=== PATIENT | male | born 1985 | race Caucasian/White ===

== ENCOUNTER 2016-10-28 02:20 | Emergency (ER) | payer OTHER ==
[~2016-10-28] VITALS: Ht 172.7 cm; Wt 76.0 kg
[~2016-10-28 02:20] MED LIST: CITALOPRAM20 MG PO; MIRTAZAPINE PO
[2016-10-28] MEDS ORDERED: DEPAKOTE ER250 MG PO (02:32)
[2016-10-28] MEDS ORDERED: SEROTONIN PO (02:32)
[2016-10-28] MEDS ORDERED: AMOXICILLIN500 MG PO (04:06)
[2016-10-28 04:15] VITALS: BP 148/76
== END 2016-10-28 04:14 | disposition home or self-care (01) | DRG 605 ==
LOC: ED 02:20
PROC: 0HQ1XZZ Repair Face Skin, External Approach (ICD-10-PCS; principal; 2016-10-28)
DX: S01.81XA Laceration without foreign body of other part of head, initial encounter (principal); F17.210 Nicotine dependence, cigarettes, uncomplicated; S16.1XXA Strain of muscle, fascia and tendon at neck level, initial encounter; V57.0XXA Driver of pick-up truck or van injured in collision with fixed or stationary object in nontraffic accident, initial encounter

== ENCOUNTER 2021-07-05 16:56 | Emergency (ER) | payer OTHER ==
[~2021-07-05] VITALS: Ht 172.7 cm; Wt 68.0 kg
[~2021-07-05 16:56] MED LIST changes: +AMOXICILLIN500 MG PO; +DEPAKOTE ER250 MG PO; +SEROTONIN PO
[2021-07-05 17:38] LABS: IMMATURE GRANULOCYTES 1.5 % (0.0-5.0); MEAN CORPUSCULAR HGB 32.4 pG CALC (26.0-32.0); MEAN CORPUSCULAR HGB CONC 33.7 g/dL CAL (32.0-36.0); PLATELET COUNT 468 thou/uL (130-400); RED BLOOD COUNT 5.81 mill/uL (4.70-6.10); RED CELL DISTRI WIDTH 13.3 % (11.5-15.5)
[2021-07-05 17:42] LABS: URINE BILIRUBIN - DIPSTICK NEGATIVE (NEGATIVE); URINE BLOOD DIPSTICK LARGE (NEGATIVE); URINE COLOR YELLOW; URINE GLUCOSE - DIPSTICK NEGATIVE (NEGATIVE); URINE KETONE NEGATIVE (NEGATIVE); URINE LEUK ESTERASE NEGATIVE (NEGATIVE); URINE PROTEIN - DIPSTICK 100 mg/dL (NEG-TRACE); URINE SPECIFIC GRAVITY >=1.030; URINE UROBILINOGEN - DIPSTICK 0.2 E.U./dL (0.2)
[2021-07-05 17:44] LABS: HEMATOCRIT 55.8 % (39.0-50.0); HEMOGLOBIN 18.8 g/dl (14.0-18.0)
[2021-07-05 17:45] LABS: MANUAL DIFFERENTIAL YES
[2021-07-05 17:46] LABS: URINE NITRITE - DIPSTICK POSITIVE (Negative)
[2021-07-05 17:50] LABS: ACT PARTIAL THROMBO TIME 26.4 SECONDS (20.0-32.5); CHLORIDE 103 mmol/l (95-108); ETHYL ALCOHOL 0 mg/dl (0-30); INTERNATIONAL NORMALIZED RATIO 1.3 RATIO (0.7-1.3); LIPASE 157 u/l (23-300); PROTHROMBIN TIME 13.3 SECONDS (9.0-12.5); SODIUM 141 mmol/l (137-146)
[2021-07-05 17:52] LABS: BAND 17 % (0-8)
[2021-07-05 17:56] LABS: URINE BACTERIA RARE hpf; URINE TRANSITIONAL EPI. CELLS FEW hpf
[2021-07-05 17:57] LABS: URINE SPERM MODERATE hpf (NONE-RARE)
[2021-07-05 18:56] VITALS: BP 130/116
[2021-07-05 19:06] LABS: BUN 35 mg/dL (9-20)
[2021-07-05 19:07] LABS: ALBUMIN 5.1 g/dL (3.2-5.0); ALKALINE PHOSPHATASE 101 u/l (38-126); ANION GAP 34 (6-22 (CALC)); BUN/CREATININE RATIO 7 (12-20 (CALC)); CARBON DIOXIDE 12 mmol/l (22-30); GFR 13 ML/MIN (>=60 (CALC)); GFR FOR AFR.AMER. 16 ML/MIN (>=60 (CALC)); TOTAL PROTEIN 8.9 g/dL (6.3-8.2)
[2021-07-05 19:08] LABS: CREATININE 5.1 mg/dL (0.7-1.3); POTASSIUM 7.7 mmol/l (3.5-5.1); SGOT/AST 2031 u/l (17-59)
[2021-07-05 19:58] LABS: CPK > 1600 u/l (52-200)
== END 2021-07-05 18:57 | DRG 999 ==
LOC: ED 16:56
PROC: 0BH17EZ Insertion of Endotracheal Airway into Trachea, Via Natural or Artificial Opening (ICD-10-PCS; principal; 2021-07-05)
PROC: 5A1935Z Respiratory Ventilation, Less than 24 Consecutive Hours (ICD-10-PCS; 2021-07-05)
PROC: 0T9B70Z Drainage of Bladder with Drainage Device, Via Natural or Artificial Opening (ICD-10-PCS; 2021-07-05)
DX: T59.811A Toxic effect of smoke, accidental (unintentional), initial encounter (principal); T31.10 Burns involving 10-19% of body surface with 0% to 9% third degree burns; R41.82 Altered mental status, unspecified; J70.5 Respiratory conditions due to smoke inhalation; Y92.008 Other place in unspecified non-institutional (private) residence as the place of occurrence of the external cause; T20.26XA Burn of second degree of forehead and cheek, initial encounter; T22.231A Burn of second degree of right upper arm, initial encounter; T21.21XA Burn of second degree of chest wall, initial encounter; T21.22XA Burn of second degree of abdominal wall, initial encounter; T24.211A Burn of second degree of right thigh, initial encounter; T24.201A Burn of second degree of unspecified site of right lower limb, except ankle and foot, initial encounter; F17.210 Nicotine dependence, cigarettes, uncomplicated

== ENCOUNTER 2021-10-19 19:49 | Emergency (ER) | payer OTHER ==
[~2021-10-19] VITALS: Ht 172.7 cm; Wt 63.0 kg
[2021-10-19] VITALS (10 sets, daily range): BP systolic 103–119; BP diastolic 69–80
[2021-10-19 20:26] LABS: IMMATURE GRANULOCYTES 2.8 % (0.0-5.0); MEAN CORPUSCULAR HGB CONC 33.1 g/dL CAL (32.0-36.0); NEUT# 14.7 thou/uL (1.82-7.42); RED BLOOD COUNT 4.58 mill/uL (4.70-6.10); RED CELL DISTRI WIDTH 14.5 % (11.5-15.5)
[2021-10-19 20:35] LABS: HEMATOCRIT 40.2 % (39.0-50.0); HEMOGLOBIN 13.3 g/dl (14.0-18.0); MEAN CELL VOLUME 87.8 fL CALC (80.0-100.0)
[2021-10-19 20:44] LABS: ALBUMIN 4.5 g/dL (3.2-5.0); ALKALINE PHOSPHATASE 114 u/l (38-126); AMYLASE 61 u/l (30-110); BUN 18 mg/dL (9-20); CARBON DIOXIDE 13 mmol/l (22-30); CHLORIDE 104 mmol/l (95-108); LIPASE 54 u/l (23-300); SODIUM 138 mmol/l (137-146); TOTAL PROTEIN 7.8 g/dL (6.3-8.2)
[2021-10-19 20:53] LABS: ANION GAP 26 (6-22 (CALC)); BILIRUBIN, TOTAL 0.3 mg/dL (0.0-1.4); BUN/CREATININE RATIO 14 (12-20 (CALC)); CREATININE 1.3 mg/dL (0.7-1.3); GFR FOR AFR.AMER. > 60 ML/MIN (>=60 (CALC)); GFR OTHER RACES > 60 ML/MIN (>=60 (CALC)); POTASSIUM 4.6 mmol/l (3.5-5.1); SGOT/AST 46 u/l (17-59)
[2021-10-19 20:56] LABS: MYOGLOBIN 92 ng/mL (0 - 121)
[2021-10-19 22:40] LABS: PROTHROMBIN TIME 10.6 SECONDS (9.0-12.5)
[2021-10-19 22:41] LABS: CPK 187 u/l (52-200); ETHYL ALCOHOL 0 mg/dl (0-30)
[2021-10-20] VITALS (10 sets, daily range): BP systolic 109–130; BP diastolic 72–108
[2021-10-20] MEDS ORDERED: BUSPAR5 MG PO (02:29)
[2021-10-20] MEDS ORDERED: HTN MED (02:30)
[2021-10-20] MEDS ORDERED: MIRTAZAPINE15 MG PO (02:30)
== END 2021-10-20 02:40 | disposition short-term general hospital (02) | DRG 918 ==
LOC: ED 19:49
PROVIDERS: Emergency Medicine
PROC: 05H533Z Insertion of Infusion Device into Right Subclavian Vein, Percutaneous Approach (ICD-10-PCS; principal; 2021-10-19)
DX: T40.2X1A Poisoning by other opioids, accidental (unintentional), initial encounter (principal); K92.0 Hematemesis; R41.0 Disorientation, unspecified; F17.200 Nicotine dependence, unspecified, uncomplicated; T54.2X1D Toxic effect of corrosive acids and acid-like substances, accidental (unintentional), subsequent encounter; T30.4 Corrosion of unspecified body region, unspecified degree; T79.9XXD Unspecified early complication of trauma, subsequent encounter; Z87.11 Personal history of peptic ulcer disease; Z20.822 Contact with and (suspected) exposure to COVID-19
CPT/HCPCS: Q9967; S0164

== ENCOUNTER 2022-03-21 20:02 | Emergency (ER) | payer OTHER ==
[~2022-03-21] VITALS: Ht 172.7 cm; Wt 68.0 kg
[~2022-03-21 20:02] MED LIST changes: +BUSPAR5 MG PO; +HTN MED; +MIRTAZAPINE15 MG PO
[2022-03-21 20:15] VITALS: BP 120/85
[2022-03-21 20:54] LABS: URINE BILIRUBIN - DIPSTICK NEGATIVE (NEGATIVE); URINE BLOOD DIPSTICK NEGATIVE (NEGATIVE); URINE COLOR YELLOW; URINE GLUCOSE - DIPSTICK NEGATIVE (NEGATIVE); URINE KETONE NEGATIVE (NEGATIVE); URINE LEUK ESTERASE NEGATIVE (NEGATIVE); URINE PROTEIN - DIPSTICK NEGATIVE (NEG-TRACE); URINE UROBILINOGEN - DIPSTICK 0.2 E.U./dL (0.2)
[2022-03-21 20:56] LABS: URINE NITRITE - DIPSTICK NEGATIVE (Negative)
[2022-03-21 21:00] LABS: BASO% 0.5 % (0-3); EOS% 1.9 % (0-8); HEMATOCRIT 42.6 % (39.0-50.0); HEMOGLOBIN 14.5 g/dl (14.0-18.0); IMMATURE GRANULOCYTES 1.3 % (0.0-5.0); LYMPH% 36.7 % (15-41); MEAN CELL VOLUME 87.5 fL CALC (80.0-100.0); MEAN CORPUSCULAR HGB 29.8 pG CALC (26.0-32.0); MONO% 6.3 % (2-13); NEUT# 5.66 thou/uL (1.82-7.42); NEUT% 53.3 % (42-76); RED BLOOD COUNT 4.87 mill/uL (4.70-6.10); RED CELL DISTRI WIDTH 13.8 % (11.5-15.5)
[2022-03-21 21:18] LABS: ALBUMIN 4.8 g/dL (3.2-5.0); ALKALINE PHOSPHATASE 134 u/l (38-126); BUN 9 mg/dL (9-20); BUN/CREATININE RATIO 10 (12-20 (CALC)); CHLORIDE 112 mmol/l (95-108); GFR FOR AFR.AMER. > 60 ML/MIN (>=60 (CALC)); GFR OTHER RACES > 60 ML/MIN (>=60 (CALC)); SGOT/AST 41 u/l (17-59); TOTAL PROTEIN 8.5 g/dL (6.3-8.2)
[2022-03-21 21:19] LABS: ANION GAP 18 (6-22 (CALC)); BILIRUBIN, TOTAL 0.1 mg/dL (0.0-1.4); CARBON DIOXIDE 23 mmol/l (22-30); POTASSIUM 3.3 mmol/l (3.5-5.1); SODIUM 150 mmol/l (137-146)
[2022-03-21 21:20] LABS: ETHYL ALCOHOL 288 mg/dl (0-30)
[2022-03-22 00:04] VITALS: BP 121/82
[2022-03-22] MEDS ORDERED: TRAMADOL HYDROC50 M1 PO (16:36)
[2022-03-22] MEDS ORDERED: CEPHALEXIN500 M1 PO (16:36)
[2022-03-25] MEDS ORDERED: CEPHALEXIN500 M1 PO (11:02)
[2022-03-25] MEDS ORDERED: TRAMADOL HYDROC50 M1 PO (11:02)
== END 2022-03-22 00:27 | DRG 159 ==
LOC: ED 20:02
PROVIDERS: Family Medicine
DX: S01.511A Laceration without foreign body of lip, initial encounter (principal); S71.011A Laceration without foreign body, right hip, initial encounter; S70.01XA Contusion of right hip, initial encounter; Y04.0XXA Assault by unarmed brawl or fight, initial encounter; F10.129 Alcohol abuse with intoxication, unspecified; F15.10 Other stimulant abuse, uncomplicated; Y90.8 Blood alcohol level of 240 mg/100 ml or more; F12.10 Cannabis abuse, uncomplicated

== ENCOUNTER 2022-03-22 15:32 | Emergency (ER) | payer OTHER ==
[~2022-03-22] VITALS: Ht 172.7 cm; Wt 65.7 kg
[2022-03-22 15:56] VITALS: BP 147/104
[2022-03-22 16:00] VITALS: BP 139/103
[2022-03-22 16:15] VITALS: BP 142/111
[2022-03-22 16:30] VITALS: BP 130/91
[2022-03-22] MEDS ORDERED: CEPHALEXIN500 M1 PO (16:36)
[2022-03-22] MEDS ORDERED: TRAMADOL HYDROC50 M1 PO (16:36)
[2022-03-22 16:45] VITALS: BP 130/91
[2022-03-25] MEDS ORDERED: CEPHALEXIN500 M1 PO (11:02)
[2022-03-25] MEDS ORDERED: TRAMADOL HYDROC50 M1 PO (11:02)
== END 2022-03-22 16:45 | disposition home or self-care (01) | DRG 921 ==
LOC: ED 15:32
DX: T81.33XA Disruption of traumatic injury wound repair, initial encounter (principal)

== ENCOUNTER 2022-04-24 12:55 | Emergency (ER) | payer OTHER ==
[~2022-04-24] VITALS: Ht 172.7 cm; Wt 70.0 kg
[2022-04-24] VITALS (39 sets, daily range): BP systolic 89–122; BP diastolic 55–81
[~2022-04-24 12:55] MED LIST changes: +CEPHALEXIN500 M1 PO; +TRAMADOL HYDROC50 M1 PO
[2022-04-24] MEDS ORDERED: LISINOPRIL5 MG PO (13:10)
[2022-04-24 13:26] LABS: BASO% 0.2 % (0-3); EOS% 0.9 % (0-8); HEMOGLOBIN 12.1 g/dl (14.0-18.0); IMMATURE GRANULOCYTES 0.9 % (0.0-5.0); LYMPH% 20.6 % (15-41); MEAN CELL VOLUME 88.6 fL CALC (80.0-100.0); MEAN CORPUSCULAR HGB 29.9 pG CALC (26.0-32.0); MEAN CORPUSCULAR HGB CONC 33.7 g/dL CAL (32.0-36.0); MONO% 13.2 % (2-13); NEUT# 13.47 thou/uL (1.82-7.42); NEUT% 64.2 % (42-76); RED BLOOD COUNT 4.05 mill/uL (4.70-6.10); RED CELL DISTRI WIDTH 13.6 % (11.5-15.5)
[2022-04-24 13:27] LABS: HEMATOCRIT 35.9 % (39.0-50.0)
[2022-04-24 13:31] LABS: ALBUMIN 4.3 g/dL (3.2-5.0); ALKALINE PHOSPHATASE 101 u/l (38-126); BUN 15 mg/dL (9-20); BUN/CREATININE RATIO 13 (12-20 (CALC)); CARBON DIOXIDE 23 mmol/l (22-30); CHLORIDE 107 mmol/l (95-108); CPK 85 u/l (55-170); CREATININE 1.1 mg/dL (0.7-1.3); ETHYL ALCOHOL 0 mg/dl (0-30); GFR FOR AFR.AMER. > 60 ML/MIN (>=60 (CALC)); GFR OTHER RACES > 60 ML/MIN (>=60 (CALC)); MAGNESIUM 1.8 mg/dL (1.6-2.3); POTASSIUM 3.6 mmol/l (3.5-5.1); SGOT/AST 27 u/l (17-59); TOTAL PROTEIN 7.1 g/dL (6.3-8.2)
[2022-04-24 13:37] LABS: ANION GAP 13 (6-22 (CALC)); BILIRUBIN, TOTAL 0.4 mg/dL (0.2-1.3); SODIUM 139 mmol/l (137-146)
[2022-04-24 13:45] LABS: INTERNATIONAL NORMALIZED RATIO 1.1 RATIO (0.7-1.3); PROTHROMBIN TIME 10.6 SECONDS (9.0-12.5)
[2022-04-24 14:00] LABS: TSH, 3RD GENERATION 1.73 uIU/mL (0.47 - 4.68)
== END 2022-04-24 17:00 | disposition left against medical advice (07) | DRG 872 ==
LOC: ED 12:55
PROVIDERS: Family Medicine
DX: A41.9 Sepsis, unspecified organism (principal); I95.9 Hypotension, unspecified; T54.2X1A Toxic effect of corrosive acids and acid-like substances, accidental (unintentional), initial encounter; T24.411A Corrosion of unspecified degree of right thigh, initial encounter; L03.115 Cellulitis of right lower limb; I10 Essential (primary) hypertension; F17.200 Nicotine dependence, unspecified, uncomplicated; Z53.29 Procedure and treatment not carried out because of patient's decision for other reasons; Z20.822 Contact with and (suspected) exposure to COVID-19
CPT/HCPCS: Q9967